=== PATIENT | male | born 1955 | race Caucasian/White ===

== ENCOUNTER 2022-01-19 11:25 | Observation (INO) ==
[2022-01-19] MEDS ORDERED: Naloxone 0.4 MG/ML INJ IVP PRN (12:57)
[2022-01-19] MEDS ORDERED: Ondansetron ODT 4 MG TAB.RAPDIS SL PRN (12:57)
[2022-01-19] MEDS ORDERED: *HR* Heparin 5,000 UNIT/ML VIAL IVP ONE (13:08)
[2022-01-19] MEDS ORDERED: *HR* Heparin 5,000 UNIT/ML VIAL IVP PRN ×2 (13:08)
[2022-01-19] MEDS ORDERED: Heparin 25,000UNIT/250ML 1/2NS 25,000 UNIT/250 ML IV.SOLN IVC SCH (13:15)
[2022-01-19] MEDS ORDERED: Acetaminophen 325 MG TABLET PO PRN (13:28)
[2022-01-19] MEDS ORDERED: Nitroglycerin 0.4 MG TAB.SUBL SL PRN (13:29)
[2022-01-19] MEDS ORDERED: *HR* Midazolam HCl 2 MG/2 ML VIAL ONE ×2 (14:47→16:09)
[2022-01-19] MEDS ORDERED: *HR* FentaNYL (PF) 100 MCG/2 ML VIAL ONE (14:47)
[2022-01-19] MEDS ORDERED: *HR* Heparin 10,000 UNIT/10 ML VIAL ONE (14:48)
[2022-01-19] MEDS ORDERED: Nitroglycerin 1,000 MCG/5 ML VIAL IV ONE (14:48)
[2022-01-19] MEDS ORDERED: Iopamidol - 370 200 ML INFUS..BTL ONE ×3 (14:48→17:06)
[2022-01-19] MEDS ORDERED: Heparin 1,000 UNITS/500 mL 500 ML ONE ×3 (14:48→16:31)
[2022-01-19] MEDS ORDERED: 0.9 % Sodium Chloride 2,000 ML ONE (14:48)
[2022-01-19] MEDS ORDERED: Tirofiban 12.5 MG/250ML 12.5 MG/250 ML BAG ONE (15:18)
[2022-01-19] MEDS ORDERED: 0.9 % Sodium Chloride 1,000 ML ONE (16:41)
[2022-01-19] MEDS ORDERED: *HR* Ticagrelor 90 MG TABLET ONE (16:42)
[2022-01-19] MEDS ORDERED: Tirofiban 12.5 MG/250ML 12.5 MG/250 ML BAG IVC SCH (18:15)
[2022-01-19 19:06] LABS: Heparin anti-factor XA UFH 0.41 IU/mL (0.30-0.70); INR 1.1; Prothrombin Time 12.2 Seconds (9.4-12.1)
[2022-01-19] MEDS: carvediloL 6.25 MG TABLET PO SCH (21:28)
[2022-01-19] MEDS: Aspirin Enteric Coated 81 MG Tablet PO SCH (21:29)
[2022-01-19] MEDS: *HR* Ticagrelor 90 MG TABLET PO SCH (21:30)
[2022-01-20 05:23] LABS: Basophils % 0.3 %; Eosinophils # 0.1 K/mcL (0.0-0.6); Hematocrit 41.3 % (37.5-50.1); Hemoglobin 13.8 g/dL (12.9-16.9); Immature Granulocytes % 0.2 % (0-4); Lymphocytes # 0.9 K/mcL (0.6-4.6); Lymphocytes % 10.3 %; Mean Corpuscular HGB Conc 33.4 g/dL (31.6-35.5); Mean Corpuscular Hemoglobin 30.9 pg (28.0-33.3); Mean Corpuscular Volume 92.4 fL (83.0-100.0); Mean Platelet Volume 11.5 fL (9.4-12.4); Monocytes # 0.8 K/mcL (0.0-1.3); Monocytes % 9.1 %; Neutrophils # 7.1 K/mcL (1.6-8.9); Platelet Count 192 K/mcL (140-400); Red Blood Count 4.47 M/mcL (4.19-5.50); Segmented Neutrophils % 79.1 %
[2022-01-20 05:28] LABS: Estimated Average Glucose 114 mg/dl; Hemoglobin A1C 5.6 %
[2022-01-20 05:41] LABS: Calcium 8.8 mg/dL (8.6-10.3); Potassium 3.5 mEq/L (3.5-5.1)
[2022-01-20] MEDS: carvediloL 6.25 MG TABLET PO SCH (07:25)
[2022-01-20] MEDS: Aspirin Enteric Coated 81 MG Tablet PO SCH (07:26)
[2022-01-20] MEDS: *HR* Ticagrelor 90 MG TABLET PO SCH (07:26)
[2022-01-20 14:57] VITALS: BP 146/78; PULSE 71; TEMP 98.5; O2SAT 97
== END 2022-01-20 16:21 | disposition home or self-care (01) ==
LOC: EMEROOARM 11:25 → 3BNU 11:25 → SUATTDRO 17:43
PROVIDERS: ADMIT Internal Medicine; ATTEND Registered Nurse